=== PATIENT | male | born 1975 | race Caucasian/White ===

== ENCOUNTER 2021-10-26 04:21 | Day surgery (SDC) | payer BC, OTHER ==
[2021-10-24 10:15] VITALS: BMI 25.3
[2021-10-26 10:53] VITALS: TEMP 97.8
[2021-10-26 11:17] VITALS: BP 117/64; PULSE 62; RESP 21
== END 2021-10-26 11:25 | disposition home or self-care (01) ==
LOC: JASU-ENDO 04:21
PROVIDERS: ATTEND Internal Medicine Gastroenterology
PROC: 0DBH8ZX Excision of Cecum, Via Natural or Artificial Opening Endoscopic, Diagnostic (ICD-10-PCS; principal; 2021-10-26 11:00)
DX: Z12.11 Encounter for screening for malignant neoplasm of colon (principal); D12.0 Benign neoplasm of cecum; K64.8 Other hemorrhoids; K57.30 Diverticulosis of large intestine without perforation or abscess without bleeding
CPT/HCPCS: 88305-TC